=== PATIENT | male | born 1990 | race Caucasian/White ===

== ENCOUNTER → 2016-10-22 07:36 | Day surgery (SDC) | payer OTHER ==
[~2016-10-22 07:36] MED LIST: Buffered Lidocaine 1% SYRIN* 3 ML/SYR SYRINGE INTRADERM ONE; Bupivacaine 0.25% SDV* 30 ML ONE; Dexamethasone IV* 4 MG/ML 1 ML (4 MG) IV SLOW PU ONE; Dexamethasone IV* 4 MG/ML 1 ML (4 MG) ONE; Famotidine IV* 10 MG/ML 2 ML (20 mg) IV ONE; Famotidine IV* 10 MG/ML 2 ML (20 mg) ONE; HYDROcodone/ACETAMIN 5-325 MG* 1 TAB PO PRN; Lidocaine 2% PF* 5 ML VIAL ONE; Midazolam* 1 MG/ML 2 ML VIAL (2 MG) ONE; Ondansetron INJ* 2 MG/ML VIAL IV PRN; Propofol* 10 MG/ML 20 ML BTL IV PUSH ONE; fentaNYL* 50 MCG/ML 2 ML VIAL (100 MCG VIAL) IV PRN; fentaNYL* 50 MCG/ML 2 ML VIAL (100 MCG VIAL) ONE
[2016-10-22 10:35] VITALS: BP 109/60
--- NOTE | 2016-10-23 01:31 | OP ---
DATE OF OPERATION: 10/22/16 - OR ESAT DATE OF : 88 SURGEON: Shashi Day MD HOME IMPROVEMENT CONTRACTOR: GIULIA Forman ANESTHESIOLOGIST: Dr. Tami Paz ANESTHESIA: Local MAC. PRE-OP DIAGNOSIS: Severe right carpal tunnel syndrome. POST-OP DIAGNOSIS: Severe right carpal tunnel syndrome. OPERATIVE PROCEDURE: Right extensile carpal tunnel release. INDICATIONS: Andrea has been having progressive right carpal tunnel symptoms for a year. It had really become quite severe to the point that his radial three digits are constantly numb. Also, over the last year, he has developed progressive and profound right thenar atrophy. He had electrodiagnostics and evaluation which showed no focal defects anywhere other than the thenar muscles. We talked about risks and benefits. He elected to proceed with surgery. He did have an injury where he had a nail go into the volar forearm roughly 6 months ago. He tells me preoperatively that he was having the symptoms well before that injury occurred and that there was absolutely no change in his carpal tunnel symptoms after the injury. ESTIMATED BLOOD LOSS: 5 mL. COMPLICATIONS: None. FINDINGS: No evidence of [id number] was discovered. DESCRIPTION OF PROCEDURE: Andrea was seen in the preoperative holding area and the correct site, side, and procedure were identified. We came back to the operating room where he got some anesthesia and then I infiltrated the operative area with 0.25% Marcaine. We then prepped and draped the arm in the usual fashion and a formal time-out was performed. I began by making an incision in the proximal palm longitudinally and then brought it at an angle in Ryder-type fashion across the volar wrist flexion creases. Dissection was carried down through the subcutaneous tissue and the palmar fascia to the transverse carpal ligament where it became confluent with the distal antebrachial fascia. I then used the 15 blade to open up proximally the distal antebrachial fascia. This release was carried down distally, and under direct visualization, the transverse carpal ligament was released in its entirety until it sprung open and there was absolutely no compression on the median nerve. The median nerve was very flat under the transverse carpal ligament. I inspected the nerve proximally and extended my incision another centimeter proximal just to make sure I had full view of the nerve and to make sure the nerve was absolutely completely decompressed. There was a little fullness in the nerve proximally, but no signs of a [id number]. We went ahead and fully inspected the nerve, did a little limited neurolysis. Everything looked good and there was no more compression on the nerve, so we went ahead and irrigated out the wound and the skin was closed with some 4-0 nylon sutures. Wound was dressed with Xeroform, 4x4's, sterile Webril, and an Cm wrap. Tourniquet was deflated. The arm had been exsanguinated and the tourniquet inflated to 250 mmHg prior to making the skin incision. After tourniquet deflation, the hand pinked up immediately. [id number]/[facility] #: [id number] [place]
== END | disposition home or self-care (01) ==
LOC: OREAST 07:36
PROVIDERS: ATTEND Orthopaedic Surgery Hand Surgery
DX: G56.01 Carpal tunnel syndrome, right upper limb (principal); F17.210 Nicotine dependence, cigarettes, uncomplicated; J45.909 Unspecified asthma, uncomplicated
CPT/HCPCS: J1100; J2250; J2704; J3010

== ENCOUNTER 2017-07-01 21:45 | Emergency (ER) | payer OTHER ==
[2017-07-01 21:56] VITALS: BP 125/77
[2017-07-01] MEDS ORDERED: Ibuprofen TAB* 600 MG PO ONE (22:06)
[2017-07-01] MEDS ORDERED: Sulfamethox/Trimethoprim DS 800/160* TAB PO ONE (22:06)
--- NOTE | 2017-07-01 22:22 | UC ---
Jelani Owens Alfonso, scribed for Crow Zaldivar MD on 07/01/17 at 2205 . Knee Pain HPI - HPI Summary HPI Summary: This patient is a 27 year old M presenting to [facility] with a chief complaint of left knee pain, erythema, and swelling worse since a few weeks ago. The patient rates the pain 1/10 in severity. Symptoms aggravated and alleviated by nothing. - History of Current Complaint Chief Complaint: UCLowerExtremity Stated Complaint: KNEE INJURY Time Seen by Provider: 07/01/17 21:56 Hx Obtained From: Patient Onset/Duration: Gradual Onset, Lasting Weeks, Still Present, Worse Since Severity Currently: Mild Pain Intensity: 1 Pain Scale Used: 0-10 Numeric Aggravating Factor(s): Nothing Alleviating Factor(s): Nothing Associated Signs And Symptoms: Positive: Swelling, Redness Able to Bear Weight: Yes - Allergies/Home Medications Allergies/Adverse Reactions: Allergies Allergy/AdvReac Type Severity Reaction Status Date / Time Latex Allergy Intermediate Swelling Verified 07/01/17 21:56 Home Medications: Home Medications NK [No Home Medications Reported] 07/01/17 [History Confirmed 07/01/17] PMH/Surg Hx/FS Hx/Imm Hx Previously Healthy: No - Surgical History Surgical History: Yes Surgery Procedure, Year, and Place: kidney removal as an infant. tracheotomy as an . had a surgery at 5 years old - did not remember what kind, RIGHT HAND SURGERY - Family History Known Family History: Negative: Diabetes - Social History Alcohol Use: None Substance Use Type: Cocaine Substance Use Comment - Amount & Last Used: sometimes Smoking Status (MU): Current Every Day Smoker Type: Cigarettes Amount Used/How Often: 5 CIG/DAY Review of Systems Constitutional: Other - Negative fever Skin: Other - left knee erythema Musculoskeletal: Other: - left knee pain, and swelling All Other Systems Reviewed And Are Negative: Yes Physical Exam Triage Information Reviewed: Yes Vital Signs: Initial Vital Signs Temp 99.4 F 07/01/17 21:52 Pulse 106 07/01/17 21:52 Resp 16 07/01/17 21:52 BP 125/77 07/01/17 21:52 Pulse Ox 100 07/01/17 21:52 Vital Signs Reviewed: Yes - Additional Comments VITAL SIGNS: Reviewed. GENERAL: Patient is a well-developed and nourished male who is lying comfortable in the stretcher. Patient is not in any acute respiratory distress. HEAD AND FACE: Normocephalic EYES: PERRLA, EOMI x 2. EARS: Hearing grossly intact. MOUTH: Oropharynx within normal limits. NECK: Supple, trachea is midline, no adenopathy, no JVD, no carotid bruit. CHEST: Symmetric, no tenderness at palpation LUNGS: Clear to auscultation bilaterally. No wheezing or crackles. CVS: Regular rate and rhythm, S1 and S2 present, no murmurs or gallops appreciated. ABDOMEN: Soft, non-tender. Bowel sounds are normal. No abdominal abnormal pulsations. EXTREMITIES: Full ROM in all major joints, no edema, no cyanosis or clubbing. Swelling below the left knee. FROM left knee. Negative draw test. NEURO: Alert and oriented x 3. No acute neurological deficits. Speech is normal and follows commands. SKIN: Dry and warm. Erythema at the anterior aspect of the lower leg. Diagnostics - Laboratory Diagnostic Studies Completed/Ordered: Left knee XR negative for fracture and dislocation. Knee Pain Course/Dx - Course Course Of Treatment: This patient is a 27 year old M presenting to [facility] with a chief complaint of left knee pain, erythema, and swelling worse since a few weeks ago. The patient rates the pain 1/10 in severity. Symptoms aggravated and alleviated by nothing. Left knee XR negative for fracture and dislocation. It seems that patient pain is secondary to cellulitis. He will be placed in Bactrim and Ibuprofen for pain. If symptoms worsen patient will be going to the ED for further w/u and management. Patient will be discharged with prescription and follow up from PCP. The patient is agreeable with this plan. The patient is hemodynamically stable, alert and oriented x3. - Differential Dx/Diagnosis Differential Diagnosis/HQI/PQRI: Bursitis, Cellulitis, Fracture (Closed), Sprain , Strain Provider Diagnoses: LLE cellulitis. Discharge - Discharge Plan Condition: Stable Disposition: HOME Patient Education Materials: Cellulitis (ED) Referrals: [facility] [place] [facility] [Outside] - 3 Days Additional Instructions: RETURN TO THE EMERGENCY DEPARTMENT OR CONVENIENT CARE FOR CHANGING OR WORSENING SYMPTOMS. The documentation as recorded by the Jelani love Alfonso accurately reflects the service I personally performed and the decisions made by Zen carnes Walter, MD.
--- NOTE | 2017-07-02 07:43 | RAD ---
HISTORY: Left knee pain COMPARISONS: None VIEWS: 4, Frontal, lateral, axial, and oblique views of the left knee FINDINGS: BONE DENSITY: Normal. BONES: There is no displaced fracture. JOINTS: There is no arthropathy. There is no suprapatellar joint effusion or lipohemarthrosis. ALIGNMENT: There is no dislocation. SOFT TISSUES: There is pretibial soft tissue swelling. OTHER FINDINGS: None. IMPRESSION: SOFT TISSUE SWELLING. NO ACUTE OSSEOUS INJURY. IF SYMPTOMS PERSIST, RECOMMEND REPEAT IMAGING.
== END 2017-07-01 22:59 | disposition home or self-care (01) ==
LOC: UCEAST 21:45
DX: L03.116 Cellulitis of left lower limb (principal); F17.210 Nicotine dependence, cigarettes, uncomplicated; Z91.040 Latex allergy status
CPT/HCPCS: 99212; A9270-GY; G0463

== ENCOUNTER 2019-07-13 20:56 | Emergency (ER) | payer SELFPAY ==
[2019-07-13 21:09] VITALS: BP 141/78
[2019-07-13] MEDS ORDERED: Tobramycin 0.3% OPHTH.SOL* 5 ML BOT (regular eye drops) BOTH EYES ONE (21:18)
[2019-07-13] MEDS ORDERED: DOXYcycline CAP(*) 100 MG PO ONE ×2 (21:19)
--- NOTE | 2019-07-13 21:21 | UC ---
Eye Complaint HPI - HPI Summary HPI Summary: 29-year-old male comes in with a chief complaint of right eye redness and discharge. Patient does have some upper respiratory tract infection symptoms for the past one week. Is been having right eye discharge that appears to be pussy. He also has some in the left eye but is not as bad. The skin around the right eye is red the patient believes disease been rubbing and somewhat. No complaint of any ear pain. No complaint of any shortness breath. 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 - History of Current Complaint Chief Complaint: UCEye Stated Complaint: EYE ISSUE Time Seen by Provider: 07/13/19 21:10 Pain Intensity: 0 - Allergies/Home Medications Allergies/Adverse Reactions: Allergies Allergy/AdvReac Type Severity Reaction Status Date / Time latex Allergy Intermediate Swelling Verified 07/13/19 21:09 PMH/Surg Hx/FS Hx/Imm Hx Previously Healthy: Yes - MRSA FOLLICULITIS - Surgical History Surgical History: Yes Surgery Procedure, Year, and Place: kidney removal as an . tracheotomy as an infant. had a surgery at 5 years old - did not remember what kind, RIGHT HAND SURGERY - Family History Known Family History: Positive: None Negative: Diabetes - Social History Alcohol Use: None Substance Use Type: Cocaine Substance Use Comment - Amount & Last Used: sometimes Smoking Status (MU): Light Every Day Tobacco Smoker Type: Cigarettes Amount Used/How Often: 5 CIG/DAY Review of Systems All Other Systems Reviewed And Are Negative: Yes Constitutional: Positive: Other - SEE HPI Skin: Positive: Other - SEE HPI Eyes: Positive: Drainage, Eye Redness ENT: Positive: Ear Ache, Nasal Discharge, Sinus Congestion Respiratory: Positive: Negative Cardiovascular: Positive: Negative Gastrointestinal: Positive: Negative Motor: Positive: Negative Neurovascular: Positive: Negative Musculoskeletal: Positive: Negative Neurological: Positive: Negative Psychological: Positive: Negative Is Patient Immunocompromised?: No Physical Exam Triage Information Reviewed: Yes Appearance: Well-Appearing, No Pain Distress, Well-Nourished Vital Signs: Initial Vital Signs Temp 99.4 F 07/13/19 21:03 Pulse 100 07/13/19 21:03 Resp 16 07/13/19 21:03 BP 141/78 07/13/19 21:03 Pulse Ox 100 07/13/19 21:03 Vital Signs Reviewed: Yes Eyes: Positive: Conjunctiva Inflamed - Bilateral left greater than right, Discharge - Bilateral left greater than right, Other: - Some erythema surrounding the right I which is difficult to discern if it's potential cellulitis or just irritation from rubbing. ENT: Positive: Pharyngeal erythema, Nasal congestion, Nasal drainage, TMs normal Neck: Positive: Supple Respiratory: Positive: Lungs clear, Normal breath sounds, No respiratory distress Cardiovascular: Positive: RRR Musculoskeletal: Positive: Strength Intact, ROM Intact Neurological: Positive: Alert, Muscle Tone Normal Psychological: Positive: Age Appropriate Behavior Skin: Positive: Other - There is some erythema around the right I which is difficult to tell whether it's cellulitis or erythema from rubbing. Eye Complaint Course/Dx - Course Course Of Treatment: We'll treat with tobramycin for conjunctivitis. Also treating with doxycycline for the sinusitis but also for the potential of cellulitis around the right eye. Patient will get reevaluated if worse or any questions or concerns. - Differential Dx/Diagnosis Provider Diagnosis: Conjunctivitis, Sinusitis Discharge ED - Sign-Out/Discharge Documenting (check all that apply): Patient Departure All imaging exams completed and their final reports reviewed: No Studies - Discharge Plan Condition: Stable Disposition: HOME Prescriptions: DOXYcycline CAP(*) [DOXYcycline 100MG CAP(*)] 100 mg PO BID #[id number] cap Patient Education Materials: Sinusitis (ED), Conjunctivitis (ED) Referrals: [facility] [Outside] [facility] [Outside] Additional Instructions: FOLLOW UP WITH YOUR DOCTOR IF NOT COMPLETELY IMPROVED. GET REEVALUATED SOONER IF NOT IMPROVED OR WORSE; SPREAD OF INFECTION, YOU FEEL ILL OR ANY QUESTIONS OR CONCERNS. - Billing Disposition and Condition Condition: STABLE Disposition: Home
== END 2019-07-13 21:42 | disposition home or self-care (01) ==
LOC: UCEAST 20:56
DX: F17.210 Nicotine dependence, cigarettes, uncomplicated (principal); H10.9 Unspecified conjunctivitis; J32.9 Chronic sinusitis, unspecified; Z91.040 Latex allergy status
CPT/HCPCS: 99213; A9270-GY; G0463